=== PATIENT | male | born 1995 | race African-American/Black ===

== ENCOUNTER 2017-05-05 22:55 | Observation (INO) | payer OTHER ==
[~2017-05-05] VITALS: Ht 177.8 cm; Wt 72.5 kg
[~2017-05-05 22:55] MED LIST: GABA100C4 PO; MOBI7.5T PO; TOPI25 PO
[2017-05-05 22:57] VITALS: BP 149/83; PULSE 86; RESP 16; TEMP 97.8; O2SAT 100
[2017-05-05] MEDS ORDERED: TRAM50TA PO (23:14)
[2017-05-05] MEDS ORDERED: CYCL10TA PO (23:14)
--- NOTE | 2017-05-05 23:24 | PD ---
HPI Chief Complaint: Headache Time Seen by Provider: 23:14 Travel History International Travel<30 days: No Contact w/Intl Traveler<30days: No Traveled to known affect area: No History of Present Illness HPI 22-year-old male with history of pseudotumor cerebri with History of lumboperitoneal shunt that was removed in September of last year bt Dr. Hadley who placed a ASSOCIATE SALES REPRESENTATIVE shunt at that time, here for evaluation of headache. Patient reports worsening headache over the last 3 days which she describes as pressure that is retro-orbital. He has had associated photophobia and nausea. Pain is currently severe, was gradual in onset, described as pressure. He complains of some blurry vision. No fevers or chills. He has not taken anything for the headache. PFSH Past Medical History Asthma: Yes Autoimmune Disease: No Anxiety: No Depression: No Cardiovascular Problems: No Diminished Hearing: Yes Gastrointestinal Disorders: Yes Genitourinary: No Headaches: Yes Musculoskeletal: No Neurologic: Yes (HYDROCEPHALUS) Psychiatric: No Reproductive: No Respiratory: No Immunizations Current: Yes Migraines: Yes Seizures: Yes Past Surgical History Ear Surgery: Yes (EAR TUBES ) Joint Replacement: No Neurologic Surgery: Yes (lumbar shunt, with valve attacted 04/06) Oral Surgery: Yes (ADNOIDS REMOVED) Pacemaker: No Tonsillectomy: Yes Other Surgery: Yes (vp biology shunt) Social History Alcohol Use: No Tobacco Use: Yes (E CIGARETTES) Substance Use: No Allergies-Medications (Allergen,Severity, Reaction): Coded Allergies: No Known Allergies (Verified Adverse Reaction, Unknown, 05/05/17) Reported Meds & Prescriptions Reported Meds & Active Scripts Active Reported Flexeril (Cyclobenzaprine HCl) 10 Mg Tab 10 Mg PO TID Tramadol (Tramadol HCl) 50 Mg Tab 50 Mg PO Q4H PRN Review of Systems Except as stated in HPI: all other systems reviewed are Neg Physical Exam Narrative GENERAL: Well-developed, well-nourished, awake, no apparent distress. SKIN: Focused skin assessment warm/dry. HEAD: Atraumatic. Normocephalic. Right parietal scalp ASSOCIATE SALES REPRESENTATIVE shunt with depressible port. EYES: Pupils equal, round, 4 mm, reactive to light. No proptosis. No scleral icterus. No injection or drainage. ENT: No nasal bleeding or discharge. Mucous membranes pink and moist. NECK: Trachea midline. No JVD. No nuchal rigidity. CARDIOVASCULAR: Regular rate and rhythm. RESPIRATORY: No accessory muscle use. Clear to auscultation. Breath sounds equal bilaterally. MUSCULOSKELETAL: No obvious deformities. No clubbing. No cyanosis. No edema. NEUROLOGICAL: Awake and alert. No obvious cranial nerve deficits. Motor grossly within normal limits. Normal speech. No focal deficits. PSYCHIATRIC: Appropriate mood and affect; insight and judgment normal. Data Data Last Documented VS Vital Signs Date Time Temp Pulse Resp B/P (MAP) Pulse Ox O2 Delivery O2 Flow Rate FiO2 05/05/17 23:18 14 Room Air 05/05/17 22:57 97.8 86 149/83 (105) [address] Brain W/O Iv Contrast(Rout) (05/05/17 ) Shunt Series (05/05/17 ) Complete Blood Count With Diff (05/05/17 23:18) Comprehensive Metabolic Panel (05/05/17 23:18) Prothrombin Time / Inr (Pt) (05/05/17 23:18) Act Partial Throm Time (Ptt) (05/05/17 23:18) Iv Access Insert/Monitor (05/05/17 23:18) Ecg Monitoring (05/05/17 23:18) Oximetry (05/05/17 23:18) Morphine Inj (Morphine Inj) (05/05/17 23:30) Sodium Chloride 0.9% Flush (Ns Flush) (05/05/17 23:30) Metoclopramide Inj (Reglan Inj) (05/05/17 23:30) Morphine Inj (Morphine Inj) (05/06/17 00:45) Shuntogram (05/06/17 ) Admit Order (Ed Use Only) (05/06/17 01:24) Labs Laboratory Tests Test 05/05/17 23:30 White Blood Count 9.1 TH/MM3 Red Blood Count 4.84 MIL/MM3 Hemoglobin 15.0 GM/DL Hematocrit 43.8 % Mean Corpuscular Volume 90.7 FL Mean Corpuscular Hemoglobin 30.9 PG Mean Corpuscular Hemoglobin Concent 34.1 % Red Cell Distribution Width 12.8 % Platelet Count 213 TH/MM3 Mean Platelet Volume 9.4 FL Neutrophils (%) (Auto) 78.6 % Lymphocytes (%) (Auto) 14.8 % Monocytes (%) (Auto) 5.5 % Eosinophils (%) (Auto) 0.8 % Basophils (%) (Auto) 0.3 % Neutrophils # (Auto) 7.1 TH/MM3 Lymphocytes # (Auto) 1.3 TH/MM3 Monocytes # (Auto) 0.5 TH/MM3 Eosinophils # (Auto) 0.1 TH/MM3 Basophils # (Auto) 0.0 TH/MM3 CBC Comment DIFF FINAL Differential Comment Prothrombin Time 11.5 SEC Prothromb Time International Ratio 1.0 RATIO Activated Partial Thromboplast Time 27.1 SEC Blood Urea Nitrogen 11 MG/DL Creatinine 1.25 MG/DL Random Glucose 100 MG/DL Total Protein 7.7 GM/DL Albumin 4.1 GM/DL Calcium Level 8.6 MG/DL Alkaline Phosphatase 60 U/L Aspartate Amino Transf (AST/SGOT) 21 U/L Alanine Aminotransferase (ALT/SGPT) 24 U/L Total Bilirubin 0.4 MG/DL Sodium Level 137 MEQ/L Potassium Level 3.4 MEQ/L Chloride Level 102 MEQ/L Carbon Dioxide Level 24.8 MEQ/L Anion Gap 10 MEQ/L Estimat Glomerular Filtration Rate 88 ML/MIN [facility] Medical Decision Making Medical Screen Exam Complete: Yes Emergency Medical Condition: Yes Differential Diagnosis ASSOCIATE SALES REPRESENTATIVE shunt malfunction, tension headache, cluster headache, migraine headache, SAH /meningitis/encephalitis unlikely Narrative Course Vital signs show heart rate 86, blood pressure 149/83, pulse ox 100% on room air , oral temp of 97.8F. CBC is unremarkable. CMP is essentially unremarkable. Shunt series: Intact shunt. CT head: CONCLUSION: 1. No evidence of acute intracranial pathology. No masses are identified. No evidence of hydrocephalus The patient was initially given a dose of 4 mg of IV morphine and 10 mg of IV Reglan. He states his headache is slightly improved and is a 7 out of 10. He was written for another 4 mg of IV morphine. Upon reassessment he states his headache is slightly more improved and is now a 6 out of 10. He still feels pressure throughout his head. There is no nuchal rigidity and he is afebrile. I do not suspect an infectious etiology for the patient's symptoms. There are no neurologic deficits. He ambulated to the restroom without difficulty and without assistance. 1:15 AM: Case discussed with neurosurgeon Dr. Hadley who recommends that the patient be admitted to the medical service. He would like me to order a shuntogram to be performed in the morning. Case discussed with [facility] hospitalist Dr. Freeman. Patient will be admitted to their service under Dr. Sotelo. Diagnosis Primary Impression: Headache Qualified Codes: R51 - Headache Additional Impression: S/P ventriculoperitoneal shunt Admitting Information Admitting Physician Requests: Reymundo Ott MD May 05, 2017 23:24
[2017-05-05] MEDS ORDERED: SODIUM CHLORIDE 0.9% FLUSH 10 ML FLUSH IV FLUSH PRN (23:30)
[2017-05-05] MEDS ORDERED: METOCLOPRAMIDE HCL 10 MG/2 ML VIAL IV PUSH ONE (23:30)
[2017-05-05] MEDS ORDERED: MORPHINE SULFATE 4 MG/ML INJ IV PUSH ONE (23:30)
[2017-05-05 23:42] LABS: AUTOMATED NEUTROPHIL # 7.1 TH/MM3 (1.8-7.7); BASOPHIL % 0.3 % (0.0-2.0); EOSINOPHIL # 0.1 TH/MM3 (0-0.4); EOSINOPHIL % 0.8 % (0.0-4.0); HEMATOCRIT 43.8 % (39.0-51.0); HEMO FLAGS DIFF FINAL; LYMPH % 14.8 % (9.0-44.0); LYMPHOCYTE # 1.3 TH/MM3 (1.0-4.8); MEAN CELL VOLUME 90.7 FL (80.0-100.0); MEAN CORPUSCULAR HEMOGLOBIN 30.9 PG (27.0-34.0); MEAN CORPUSCULAR HGB CONC 34.1 % (32.0-36.0); MONO % 5.5 % (0.0-8.0); NEUT % 78.6 % (16.0-70.0); PLATELET COUNT 213 TH/MM3 (150-450); RED BLOOD COUNT 4.84 MIL/MM3 (4.50-5.90); RED CELL DISTRIBUTION WIDTH 12.8 % (11.6-17.2); WHITE BLOOD COUNT 9.1 TH/MM3 (4.0-11.0)
[2017-05-06] VITALS: BP 123/72; PULSE 78; RESP 16; O2SAT 96
[2017-05-06 00:03] LABS: APTT (PATIENT) 27.1 SEC (24.3-30.1); PROTHROMBIN TIME - PATIENT 11.5 SEC (9.8-11.6)
[2017-05-06 00:14] LABS: ALT (GPT) 24 U/L (12-78)
[2017-05-06 00:16] LABS: ALKALINE PHOSPHATASE 60 U/L (45-117); TOTAL BILIRUBIN ADULT 0.4 MG/DL (0.2-1.0)
[2017-05-06 00:17] LABS: ANION GAP 10 MEQ/L (5-15); AST (GOT) 21 U/L (15-37); BICARBONATE 24.8 MEQ/L (21.0-32.0); BLOOD UREA NITROGEN 11 MG/DL (7-18); CHLORIDE 102 MEQ/L (98-107); GLOMERULAR FILTRATION RATE 88 ML/MIN (>89); POTASSIUM 3.4 MEQ/L (3.5-5.1); SODIUM (NA) 137 MEQ/L (136-145)
--- NOTE | 2017-05-06 00:34 | RADRPT ---
EXAM DATE/TIME: 05/06/2017 00:03 [facility] COMPARISON: No previous studies available for comparison. INDICATIONS : Headaches x 1 week MEDICAL HISTORY : Seizures, hydrocephalus SURGICAL HISTORY : Shint placement ENCOUNTER: Initial ACUITY: 1 week PAIN SCORE: 7/10 LOCATION: Bilateral FINDINGS: Radiograph of the skull, neck, chest and abdomen performed to evaluate shunt patency. The shunt cath eter is seen entering the right frontal region with its tip in the region of the body of the right la teral ventricle. The catheter is continuous in its course terminating in the right upper quadrant No catheter disrupti on is identified. The visualized heart, lungs and abdominal structures are intact. CONCLUSION: Intact shunt. David Sutton MD on May 06, 2017 at 0:31 Board Certified Radiologist. This report was verified electronically.
[2017-05-06] MEDS ORDERED: MORPHINE SULFATE 4 MG/ML INJ IV PUSH ONE (00:45)
--- NOTE | 2017-05-06 01:07 | RADRPT ---
EXAM DATE/TIME: 05/06/2017 00:15 [facility] COMPARISON: CT BRAIN W/O CONTRAST, November 09, 2015, 14:28. INDICATIONS : Headache; patient with SOLUTION DESIGN ENGINEER shunt. RADIATION DOSE: 56.35 CTDIvol (mGy) MEDICAL HISTORY : Seizures. Hydrocephalus SURGICAL HISTORY : SOLUTION DESIGN ENGINEER shunt placement ENCOUNTER: Initial ACUITY: 1 day PAIN SCALE: 6/10 LOCATION: cranial TECHNIQUE: Multiple contiguous axial images were obtained of the head. Using automated exposure control and adj ustment of the mA and/or kV according to patient size, radiation dose was kept as low as reasonably a chievable to obtain optimal diagnostic quality images. DICOM format image data is available electro nically for review and comparison. FINDINGS: Noncontrast axial head CT demonstrates the ventricles to be normal in size and configuration with a n ormal sulcal pattern. No acute intracranial hemorrhage, acute cortical infarction, mass or midline sh ift is seen. Posterior fossa structures are unremarkable. Shunt is present in the right frontal regio n with its tip in the frontal horn of the left lateral ventricle. Bone windows are unremarkable. CONCLUSION: 1. No evidence of acute intracranial pathology. No masses are identified. No evidence of hydrocephalu s David Sutton MD on May 06, 2017 at 1:03 Board Certified Radiologist. This report was verified electronically.
[2017-05-06] MEDS ORDERED: GADODIAMIDE PF 287 MG/ML 5 ML VIAL (for RAD MRI) IV PUSH ONE (01:27)
[2017-05-06] MEDS ORDERED: IOHEXOL 300 MG/ML 100 ML BTL (for Rad CT) OTHER ONE (01:27)
[2017-05-06 02:55] VITALS: BP 115/65; PULSE 66; RESP 18; TEMP 97.7; O2SAT 100
[2017-05-06] MEDS: MORPHINE SULFATE 4 MG/ML INJ IV PUSH PRN ×5 (03:05→23:47)
--- NOTE | 2017-05-06 07:55 | HHI.HP ---
HPI Service [facility] Hospitalists Primary Care Physician Aysha Juárez D.O. Admission Diagnosis headache with NETWORK CABLER shunt Chief Complaint: Headache Travel History International Travel<30 Days: No Contact w/Intl Traveler <30 Da: No Traveled to Known Affected Are: No History of Present Illness Mr. Hoover is a 22 y/o male with chronic headaches, Pseudotumor cerebri s/p lumbar shunt which was removed and NETWORK CABLER shunt placed in 2015, low back pain and epilepsy. Pt had a lumbar shunt placed around 2007 for primary intracranial hypertension, and his symptoms improved. Since then, he has had issues with his shunt requiring approximately 14 surgeries which had mainly been performed at [facility]. Pt has been having issues with reoccurring severe headaches. He was admitted in 09/2015 and underwent NETWORK CABLER shunt revision with removal of nonfunctioning lumbar peritoneal shunt on 10/26/[address] Hadley and during surgery it was noted that the spinal catheter could not be located for removal, as it had migrated into the spinal canal. Pt states that about one and a half weeks ago he started having a global headache with increased pressure behind both eyes. He has had associated nausea, dizziness and blurred vision related to the headaches. The pain progressively worsened and this prompted him to come to the ED for further evaluation. Head CT with no evidence of acute intracranial pathology, no masses are identified, and no evidence of hydrocephalus. Shunt study noted intact shunt. Pt is going for a shuntogram this morning. Pt reports that he has continued to have issues with low back pain and LE weakness. he has been following with Dr. Vale and Dr. Hadley as an outpt. Pt takes Flexeril and Ultram as an outpt to try to control those symptoms.He has not had any issues with bowel or bladder function. The weakness in his legs is worse when his low back pain flares up. He has more pain in the lower back with bending or twisting motions and occasionally his back "gives out" on him and he can't stand up straight for around 2 days. He has workup as an outpt with EMG/ nerve conduction studies which have been reported as normal studies. Review of Systems Constitutional: COMPLAINS OF: Dizziness, DENIES: Fever, Chills Eyes: COMPLAINS OF: Blurred vision Ears, nose, mouth, throat: DENIES: Hearing loss, Vertigo, Ear Pain, Running Nose Respiratory: DENIES: Cough, Shortness of breath Cardiovascular: DENIES: Chest pain, Lower Extremity Edema Gastrointestinal: COMPLAINS OF: Nausea, Vomiting, DENIES: Abdominal pain, Diarrhea Genitourinary: DENIES: Urinary incontinence, Urgency, Dysuria Musculoskeletal: COMPLAINS OF: Back pain Integumentary: DENIES: Rash Neurologic: COMPLAINS OF: Headache, Localized weakness, DENIES: Speech Problems , Poor Balance Psychiatric: DENIES: Confusion Past Family Social History Past Medical History Pseudotumor cerebri s/p lumbar shunt with revision to NETWORK CABLER shunt secondary to hydrocephalus Migraine HAs Epilepsy, last seizure was 2011 Hypoxic brain injury at Past Surgical History NETWORK CABLER shunt revision with removal of nonfunctioning lumbar peritoneal shunt on 10/[address] 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 HEENT: Atraumatic. Normocephalic. No temporal or scalp tenderness. No scleral icterus. Airway patent. NECK: Trachea midline, supple, nontender. No nuchal rigidity CARDIO: Regular. RESP: CTA bilaterally. No wheezes, rales, or rhonchi. ABD: +BS, soft, non-tender, nondistended. EXT: Extremities without clubbing, cyanosis, or edema. NEURO: Awake and alert. Hyperreflexive in bilateral LE, L>R, Motor and sensory grossly within normal limits. Normal speech. Laboratory Laboratory Tests Test 05/05/17 23:30 White Blood Count 9.1 Red Blood Count 4.84 Hemoglobin 15.0 Hematocrit 43.8 Mean Corpuscular Volume 90.7 Mean Corpuscular Hemoglobin 30.9 Mean Corpuscular Hemoglobin Concent 34.1 Red Cell Distribution Width 12.8 Platelet Count 213 Mean Platelet Volume 9.4 Neutrophils (%) (Auto) 78.6 Lymphocytes (%) (Auto) 14.8 Monocytes (%) (Auto) 5.5 Eosinophils (%) (Auto) 0.8 Basophils (%) (Auto) 0.3 Neutrophils # (Auto) 7.1 Lymphocytes # (Auto) 1.3 Monocytes # (Auto) 0.5 Eosinophils # (Auto) 0.1 Basophils # (Auto) 0.0 CBC Comment DIFF FINAL Differential Comment Prothrombin Time 11.5 Prothromb Time International Ratio 1.0 Activated Partial Thromboplast Time 27.1 Blood Urea Nitrogen 11 Creatinine 1.25 Random Glucose 100 Total Protein 7.7 Albumin 4.1 Calcium Level 8.6 Alkaline Phosphatase 60 Aspartate Amino Transf (AST/SGOT) 21 Alanine Aminotransferase (ALT/SGPT) 24 Total Bilirubin 0.4 Sodium Level 137 Potassium Level 3.4 Chloride Level 102 Carbon Dioxide Level 24.8 Anion Gap 10 Estimat Glomerular Filtration Rate 88 Result Diagram: 05/05/170 05/05/17 2330 Imaging Last Impressions Shunt Study (Imaging) 05/05/17 0000 Signed Impressions: Service Date/Time: Saturday, May 06, 2017 00:03 - CONCLUSION: Intact shunt. David Sutton MD Head CT 05/05/17 0000 Signed Impressions: Service Date/Time: Saturday, May 06, 2017 00:15 - CONCLUSION: 1. No evidence of acute intracranial pathology. No masses are identified. No evidence of hydrocephalus David Sutton MD Septic Shock Reassessment Heart: Regular rate and rhythm Lungs: Clear Skin: Warm Caprini VTE Risk Assessment Caprini VTE Risk Assessment: No/Low Risk (score <= 1) Caprini Risk Assessment Model Point Value = 1 Point Value = 2 Point Value = 3 Point Value = 5 Age 41-60 Minor surgery BMI > 25 kg/m2 Swollen legs Varicose veins or History of unexplained or recurrent spontaneous Oral contraceptives or hormone replacement Sepsis (< 1 month) Serious lung disease, including pneumonia (< 1 month) Abnormal pulmonary function Acute myocardial infarction Congestive heart failure (< 1 month) History of inflammatory bowel disease Medical patient at bed rest Age 61-74 Arthroscopic surgery Major open surgery (> 45 min) Laparoscopic surgery (> 45 min) Malignancy Confined to bed (> 72 hours) Immobilizing plaster cast Central venous access Age >= 75 History of VTE Family history of VTE Factor V Leiden Prothrombin [id number] Lupus anticoagulant Anticardiolipin antibodies Elevated serum homocysteine Heparin-induced thrombocytopenia Other congenital or acquired thrombophilia Stroke (< 1 month) Elective arthroplasty Hip, pelvis, or leg fracture Acute spinal cord injury (< 1 month) Prophylaxis Regimen Total Risk Factor Score Risk Level Prophylaxis Regimen 0-1 Low Early ambulation 2 Moderate Order ONE of the following: *Sequential Compression Device (SCD) *Heparin 5000 units SQ BID 3-4 Higher Order ONE of the following medications: *Heparin 5000 units SQ TID *Enoxaparin/Lovenox 40 mg SQ daily (WT < 150 kg, CrCl > 30 mL/min) *Enoxaparin/Lovenox 30 mg SQ daily (WT < 150 kg, CrCl > 10-29 mL/min) *Enoxaparin/Lovenox 30 mg SQ BID (WT < 150 kg, CrCl > 30 mL/min) AND/OR *Sequential Compression Device (SCD) 5 or more Highest Order ONE of the following medications: *Heparin 5000 units SQ TID (Preferred with Epidurals) *Enoxaparin/Lovenox 40 mg SQ daily (WT < 150 kg, CrCl > 30 mL/min) *Enoxaparin/Lovenox 30 mg SQ daily (WT < 150 kg, CrCl > 10-29 mL/min) *Enoxaparin/Lovenox 30 mg SQ BID (WT < 150 kg, CrCl > 30 mL/min) AND *Sequential Compression Device (SCD) Assessment and Plan Problem List: (1) Headache ICD Codes: R51 - Headache Status: Chronic Plan: Pt is a 22 y/o male with chronic headaches, Pseudotumor cerebri s/p lumbar shunt which was removed and NETWORK CABLER shunt placed in 2015, low back pain and epilepsy. Pt had a lumbar shunt placed around 2007 for primary intracranial hypertension , and his symptoms improved. Since then, he has had issues with his shunt requiring approximately 14 surgeries which had mainly been performed at [facility]. Pt has been having issues with reoccurring severe headaches. He was admitted in 09/2015 and underwent NETWORK CABLER shunt revision with removal of nonfunctioning lumbar peritoneal shunt on 10/26/[address] Hadley and during surgery it was noted that the spinal catheter could not be located for removal, as it had migrated into the spinal canal. 1. Headache/blurred vision/nausea - Pt admitted with worsening headache x 1.5 weeks, global headache with increased pressure behind both eyes. He has had associated nausea, dizziness and blurred vision related to the headaches. - Head CT (05/05) with no evidence of acute intracranial pathology, no masses are identified, and no evidence of hydrocephalus. - Shunt study noted intact shunt. - Pt is going for a shuntogram this morning. - Consult Dr. Hadley - Pain control PRN - Antiemetics PRN - Supportive care - DVT prophylaxis with SCDs 2. Low back pain - Pt has had continued issues with low back pain and LE weakness. he weakness in his legs is worse when his low back pain flares up. He has more pain in the lower back with bending or twisting motions and occasionally his back "gives out" on him and he can't stand up straight for around 2 days. - He has been following with Dr. Vale and Dr. Hadley as an outpt. - Pt takes Flexeril and Ultram as an outpt to try to control those symptoms. - He has not had any issues with bowel or bladder function. - The has workup as an outpt with EMG/nerve conduction studies which have been reported as normal studies. - Check MRI lumbar spine. 3 Pseudotumor cerebri - See above 4. Epilepsy - Pt follows with Dr. Vale as an outpt - He is not currently on any antiepileptics (2) Low back pain ICD Codes: M54.5 - Low back pain Status: Chronic (3) Pseudotumor cerebri ICD Codes: G93.2 - Benign intracranial hypertension Status: Chronic (4) Epilepsy ICD Codes: G40.909 - Epilepsy, unspecified, not intractable, without status epilepticus Status: Chronic (5) S/P ventriculoperitoneal shunt ICD Codes: Z98.2 - Presence of cerebrospinal fluid drainage device Status: Acute Assessment and Plan Patient examined. Assessment and plan formulated with Meg Montana PA-C. I agree with the above. Problem Qualifiers (1) Low back pain: Qualified Codes: M54.5 - Low back pain Meg Montana May 06, 2017 07:55 Vance Sotelo DO May 13, 2017 20:46
[2017-05-06] MEDS ORDERED: METOCLOPRAMIDE HCL 10 MG/2 ML VIAL IM PRN (08:45)
[2017-05-06] MEDS ORDERED: ACETAMINOPHEN 325 MG TAB PO PRN (08:45)
[2017-05-06] MEDS ORDERED: ACETAMINOPHEN/HYDROcodone 325 MG/5 MG TAB PO PRN (08:45)
[2017-05-06 08:56] VITALS: BP 111/55; PULSE 70; RESP 18; TEMP 95.1; O2SAT 97
[2017-05-06] MEDS: ONDANSETRON HCL 4 MG/2 ML VIAL IV PRN ×2 (09:16→23:45)
--- NOTE | 2017-05-06 10:24 | PD.RAD ---
Post Procedure Progress Note Pre Procedure Diagnosis: (1) Pseudotumor cerebri (2) S/P ventriculoperitoneal shunt Post Procedure Diagnosis: (1) Pseudotumor cerebri (2) S/P ventriculoperitoneal shunt (3) Headache Procedure Date: May 06, 2017 Supervising Radiologist: Patel Boss Proceduralist/Assist: Makenzie Smith, RT(R), Deepika Covington, RT(R) Plan of Activity Patient to Unit: Other (ED) Patient Condition: Good See PACS Report for procedural detail/treatment Imaging Evaluation Shuntogram Findings: Shunt patent and intact. Patel Boss MD May 06, 2017 10:24
[2017-05-06] MEDS ORDERED: POTASSIUM CHLORIDE 20 MEQ CONTROLLED RELEASE TAB PO ONE (10:30)
--- NOTE | 2017-05-06 11:52 | PD.CONS ---
[facility] Service Neurosurgery Consult Requested By Salma MEHTA Reason for Consult Suspected shunt malfunction Primary Care Physician Aysha Juárez D.O. History of Present Illness Mr. Mcneil is a 22 y/o male with hisory of speudotumor cerebri and chronic headaches. he was diagnosed with Pseudotumor cerebri s/p lumbar shunt which was removed and TRANSPORTATION ATTENDANT shunt placed in 2016, low back pain and epilepsy.Pt had a lumbar shunt placed around 2007 for primary intracranial hypertension, and his symptoms improved. Since then, he has had shunt malfunction, requiring approximately 14 surgeries, mainly been performed at [facility], in [place]. He has been having recurring severe headaches. He was admitted in 09/2015 and underwent TRANSPORTATION ATTENDANT shunt revision with removal of nonfunctioning lumbar peritoneal shunt on 10/26/15 At that time, the spinal catheter could not be located for removal, as it had migrated into the spinal canal. Pt states that about one and a half weeks ago he started having a global headache with increased pressure behind both eyes. He has had associated nausea, dizziness and blurred vision. The pain progressively worsened and this prompted him to come to the ED for further evaluation. Head CT with no evidence of acute intracranial pathology. Shunt series noted intact shunt. He reports that he has continued to have issues with low back pain and LE weakness. he has been following with Dr. Vale. He takes Flexeril and Ultram to control those symptoms.He has not had any issues with bowel or bladder function. The weakness in his legs is worse when his low back pain flares up. Back pain in the lower back aggravated by bending or twisting. He has workup as an outpt with EMG/nerve conduction studies which have been reported as normal studies. Neurosurgical consultation was requested Review of Systems Constitutional: COMPLAINS OF: Dizziness, DENIES: Fever, Chills Eyes: COMPLAINS OF: Blurred vision Ears, nose, mouth, throat: DENIES: Hearing loss, Vertigo, Ear Pain, Running Nose Respiratory: DENIES: Cough, Shortness of breath Cardiovascular: DENIES: Chest pain, Lower Extremity Edema Gastrointestinal: COMPLAINS OF: Nausea, Vomiting, DENIES: Abdominal pain, Diarrhea Genitourinary: DENIES: Urinary incontinence, Urgency, Dysuria Musculoskeletal: COMPLAINS OF: Back pain Integumentary: DENIES: Rash Neurologic: COMPLAINS OF: Headache,back pain , DENIES: Speech Problems, Poor Balance Psychiatric: DENIES: Confusion Past Family Social History Allergies: Coded Allergies: No Known Allergies (Verified Adverse Reaction, Unknown, 05/05/17) Past Medical History Pseudotumor cerebri s/p lumbar shunt with revision to TRANSPORTATION ATTENDANT shunt secondary to hydrocephalus Migraine HAs Epilepsy, last seizure was 2011 Hypoxic brain injury at Past Surgical History TRANSPORTATION ATTENDANT shunt revision with removal of nonfunctioning lumbar peritoneal shunt on 10/[address] 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 Speech is fluent. Higher cognitive functions are normal. Cranial nerve examination demonstrates the pupils to be equal, round, and reactive to light. Extra-ocular movements are intact. Facial motor and sensory function are normal and symmetrical. Gross hearing is intact, bilaterally. The uvula is midline and elevates symmetrically with the soft palate. Sternocleidomastoid and trapezius muscles have normal and symmetrical strength. Other cranial nerves are intact. Neck is soft and supple. Cervical spine has a full range of motion in anterior flexion, extension, lateral bending, and rotation without pain. There is no tenderness to palpation to the spinous processes or paraspinal muscles. Muscle testing reveals normal bulk and tone overall without rigidity, spasticity , fasciculations, or atrophy. Muscle strength is 5/5 in all muscle groups of both upper extremities including deltoid, biceps, triceps, brachioradialis, wrist extension and gravity prospecting observer. In the lower extremities, strength is 5/5 in both iliopsoas, quadriceps, hamstrings, plantar flexion, dorsiflexion, and extensor hallicus longus. Sensory examination is intact to light touch and sharp/dull discrimination in both the upper and lower extremities, symmetrically. Deep tendon reflexes are 2+ and symmetrical in the biceps, triceps, and brachioradialis, bilaterally, in the upper extremities. In the lower extremities , the patellar and Achilles are 3+, bilaterally. There is a bilateral plantar flexion response. Hoffmanns sign is negative. There is no clonus or other abnormal reflexes noted. Cerebellar examination is intact to [id number] test, rapid rhythmic alternating motion. There is no dysmetria, dysdiadochokinesia, truncal ataxia, or tremor. Laboratory Laboratory Tests Test 05/05/17 23:30 White Blood Count 9.1 Red Blood Count 4.84 Hemoglobin 15.0 Hematocrit 43.8 Mean Corpuscular Volume 90.7 Mean Corpuscular Hemoglobin 30.9 Mean Corpuscular Hemoglobin Concent 34.1 Red Cell Distribution Width 12.8 Platelet Count 213 Mean Platelet Volume 9.4 Neutrophils (%) (Auto) 78.6 Lymphocytes (%) (Auto) 14.8 Monocytes (%) (Auto) 5.5 Eosinophils (%) (Auto) 0.8 Basophils (%) (Auto) 0.3 Neutrophils # (Auto) 7.1 Lymphocytes # (Auto) 1.3 Monocytes # (Auto) 0.5 Eosinophils # (Auto) 0.1 Basophils # (Auto) 0.0 CBC Comment DIFF FINAL Differential Comment Prothrombin Time 11.5 Prothromb Time International Ratio 1.0 Activated Partial Thromboplast Time 27.1 Blood Urea Nitrogen 11 Creatinine 1.25 Random Glucose 100 Total Protein 7.7 Albumin 4.1 Calcium Level 8.6 Alkaline Phosphatase 60 Aspartate Amino Transf (AST/SGOT) 21 Alanine Aminotransferase (ALT/SGPT) 24 Total Bilirubin 0.4 Sodium Level 137 Potassium Level 3.4 Chloride Level 102 Carbon Dioxide Level 24.8 Anion Gap 10 Estimat Glomerular Filtration Rate 88 Result Diagram: 05/05/170 05/05/17 2330 Imaging Imaging Last Impressions Shunt Study (Imaging) 05/05/17 0000 Signed Impressions: Service Date/Time: Saturday, May 06, 2017 00:03 - CONCLUSION: Intact shunt. David Sutton MD Head CT 05/05/17 0000 Signed Impressions: Service Date/Time: Saturday, May 06, 2017 00:15 - CONCLUSION: 1. No evidence of acute intracranial pathology. No masses are identified. No evidence of hydrocephalus David Sutton MD Assessment and Plan Assessment and Plan Caprini VTE Risk Assessment Caprini VTE Risk Assessment Caprini VTE Risk Assessment: No/Low Risk (score <= 1) Caprini Risk Assessment Model Point Value = 1 Point Value = 2 Point Value = 3 Point Value = 5 Age 41-60 Minor surgery BMI > 25 kg/m2 Swollen legs Varicose veins or History of unexplained or recurrent spontaneous Oral contraceptives or hormone replacement Sepsis (< 1 month) Serious lung disease, including pneumonia (< 1 month) Abnormal pulmonary function Acute myocardial infarction Congestive heart failure (< 1 month) History of inflammatory bowel disease Medical patient at bed rest Age 61-74 Arthroscopic surgery Major open surgery (> 45 min) Laparoscopic surgery (> 45 min) Malignancy Confined to bed (> 72 hours) Immobilizing plaster cast Central venous access Age >= 75 History of VTE Family history of VTE Factor V Leiden Prothrombin [id number] Lupus anticoagulant Anticardiolipin antibodies Elevated serum homocysteine Heparin-induced thrombocytopenia Other congenital or acquired thrombophilia Stroke (< 1 month) Elective arthroplasty Hip, pelvis, or leg fracture Acute spinal cord injury (< 1 month) Prophylaxis Regimen Total Risk Factor Score Risk Level Prophylaxis Regimen 0-1 Low Early ambulation 2 Moderate Order ONE of the following: *Sequential Compression Device (SCD) *Heparin 5000 units SQ BID 3-4 Higher Order ONE of the following medications: *Heparin 5000 units SQ TID *Enoxaparin/Lovenox 40 mg SQ daily (WT < 150 kg, CrCl > 30 mL/min) *Enoxaparin/Lovenox 30 mg SQ daily (WT < 150 kg, CrCl > 10-29 mL/min) *Enoxaparin/Lovenox 30 mg SQ BID (WT < 150 kg, CrCl > 30 mL/min) AND/OR *Sequential Compression Device (SCD) 5 or more Highest Order ONE of the following medications: *Heparin 5000 units SQ TID (Preferred with Epidurals) *Enoxaparin/Lovenox 40 mg SQ daily (WT < 150 kg, CrCl > 30 mL/min) *Enoxaparin/Lovenox 30 mg SQ daily (WT < 150 kg, CrCl > 10-29 mL/min) *Enoxaparin/Lovenox 30 mg SQ BID (WT < 150 kg, CrCl > 30 mL/min) AND *Sequential Compression Device (SCD) Attending Statement (1) Headache ICD Codes: R51 - Headache Status: Chronic 22 y/o male with chronic headaches, Pseudotumor cerebri s/p lumbar shunt. Approximately 14 revision surgeries. Recommend shuntogram to rule out shunt occlusion. (2) Low back pain ICD Codes: M54.5 - Low back pain Continue Flexeril and Ultram MRI lumbar spine. (3) Epilepsy ICD Codes: G40.909 - Epilepsy, unspecified, not intractable, without status epilepticus Status: Chronic follow up with Dr. Vale as an outpt He is not currently on any antiepileptics Renal. monitor closely urine output, BUN and creatinine Diabetes mellitus. Monitor serial Acu checks and SSI as needed in detail ID monitor for signs of infection Protonix for stress ulcer prophylaxis Henry garland and SCD's for DVT prophylaxis. Tre Hadley MD May 06, 2017 11:52
--- NOTE | 2017-05-06 13:07 | RADRPT ---
EXAM DATE/TIME: 05/06/2017 12:09 [facility] COMPARISON: SHUNT SERIES, May 06, 2017, 0:03. INDICATIONS : Pain. Pt had lumbar shunt removed in September. C/o back pain. CONTRAST: 14 cc Omniscan (gadodiamide) IV MEDICAL HISTORY : Hydrocephalis. SURGICAL HISTORY : Tonsillectomy. [employer] SALES shunt xs 14. ENCOUNTER: Subsequent ACUITY: 4-6 months PAIN SCORE: 4/10 LOCATION: back TECHNIQUE: Multiplanar multisequence MRI of the lumbar spine was performed with and without contrast. FINDINGS: The most caudal appearing lumbar vertebra is numbered as L5. VERTEBRAE: Homogeneous signal. Normal alignment. There is disc dehydration with disc space narrowing at L4-5. N o bone marrow edema seen in the vertebral bodies. There does appear to be a spinal catheter in place. The spinal catheter enters the canal at about the level of L4 and extends up to the level of L1-L2 CONUS: Normal level and configuration. POST CONTRAST: No abnormal areas of contrast enhancement are seen. T12-L1: The thecal sac has a normal diameter. No evidence of disc bulge or protrusion. The neural foramina are patent bilaterally. L1-L2: The thecal sac has a normal diameter. No evidence of disc bulge or protrusion. The neural foramina are patent bilaterally. L2-L3: The thecal sac has a normal diameter. No evidence of disc bulge or protrusion. The neural foramina are patent bilaterally. L3-L4: Mild broad-based bulging. The neural foramina are patent bilaterally. L4-L5: There is central and left paracentral disc protrusion with narrowing of the left neural foramina. The right neural foramina appears patent. L5-S1: The thecal sac has a normal diameter. No evidence of disc bulge or protrusion. The neural foramina are patent bilaterally. CONCLUSION: 1. There is central and left paracentral disc protrusion at L4-5 with narrowing of the left neural fo ramina. 2. There is disc degeneration with disc space narrowing at L4-5. 3. There is a spinal catheter in place entering the canal at L4 and extending up to the level of L1-L 2. The indication states the lumbar shunt was removed in September. Please correlate with patient's prior medical and surgical history since there is still a lumbar spinal catheter in place. Luc Ryan MD on May 06, 2017 at 12:58 Board Certified Radiologist. This report was verified electronically.
--- NOTE | 2017-05-06 13:48 | RADRPT ---
EXAM DATE/TIME: 05/06/2017 10:57 [facility] COMPARISON: SHUNTOGRAM, October 31, 2015, 14:23. INDICATIONS : Patient with a history of pseudotumor cerebri needs shuntogram. 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 Fluoroscopically guided shuntogram. The risks, benefits and alternatives to the procedure were explained and verbal and written consent w as obtained. The site was prepped in sterile fashion. Full sterile technique was used, including ca p, mask, sterile gloves and gown and a large sterile sheet. Hand hygiene and 2% chlorhexidine and/or betadine/alcohol prep was utilized per protocol for cutaneous antisepsis. The skin and subcutaneous tissues were infiltrated with local anesthetic solution. With fluoroscopic guidance the previously placed shunt was injected with a 23 gauge butterfly needle and positive contrast was injected. Immediate retrograde flow into the nondilated ventricular system. Shunt tubing is intact with free fl ow into the peritoneal cavity CONCLUSION: Negative exam. Ventriculoperitoneal shunt remains patent. Patel Bsos MD on May 06, 2017 at 13:43 Board Certified Radiologist. This report was verified electronically.
[2017-05-06 14:41] VITALS: BP 110/59; PULSE 67; RESP 18; TEMP 96.4; O2SAT 96
--- NOTE | 2017-05-06 16:05 | PD.RAD ---
Post Procedure Progress Note Pre Procedure Diagnosis: (1) Pseudotumor cerebri (2) Headache Post Procedure Diagnosis: (1) Pseudotumor cerebri (2) Headache Procedure Date: May 06, 2017 Supervising Radiologist: Patel Boss Proceduralist/Assist: Maurice Alfaro, RT(R), Alcides Wen, RT(R) Anesthesia: Local Plan of Activity Patient to Unit: Other (ED) Patient Condition: Good See PACS Report for procedural detail/treatment Spinal Procedure Lumbar Puncture L3-L4 Fluid Removal (CCs): 24 Fluid Description: Clear Puncture Time: 15:51 Findings: OP: 35 cmH2O CP: 12 cmH2O Patel Boss MD May 06, 2017 16:05
--- NOTE | 2017-05-06 16:43 | RADRPT ---
EXAM DATE/TIME: 05/06/2017 16:31 [facility] COMPARISON: LUMBAR PUNCTURE W/OPENING PRESSURES, October 29, 2015, 11:58. INDICATIONS : Patient presents with pseudotumor cerebri and chronic headaches in need of lumbar puncture with cultu res. 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 FLUID: 24 cc of clear CSF was collected and sent to the laboratory for analysis. PROCEDURE : 1. Fluoroscopic guided lumbar puncture. 2. Recording of opening pressure. The risks, benefits and alternatives to the procedure were explained and verbal and written consent w as obtained. The site was prepped in sterile fashion. Full sterile technique was used, including ca p, mask, sterile gloves and gown and a large sterile sheet. Hand hygiene and 2% chlorhexidine and/or betadine/alcohol prep was utilized per protocol for cutaneous antisepsis. The skin and subcutaneous tissues were infiltrated with local anesthetic solution. Airport Ramp Agent image shows a catheter overlying the spinal canal. Patient reports an abandoned lumbar drain. With fluoroscopic guidance the lumbar thecal sac was punctured at the above level described above and the opening pressure was recorded. The above described fluid was removed without difficulty. The patient tolerated the procedure well and there were no complications. CONCLUSION: 1. Uncomplicated fluoroscopically guided lumbar puncture with pressures as above. 2. Opening pressure of 35 cm of water with a closing pressure of 12 cm of water. Patel Boss MD on May 06, 2017 at 16:33 Board Certified Radiologist. This report was verified electronically.
[2017-05-06 17:36] VITALS: BP 106/55; PULSE 61; RESP 24; TEMP 97.5; O2SAT 98
[2017-05-06 18:18] LABS: GROSS BLOOD TUBE #1 0 (0); GROSS BLOOD TUBE #2 0 (0); SUPERNATE COLOR TUBE #1 CLEAR (CLEAR); SUPERNATE COLOR TUBE #2 CLEAR (CLEAR); SUPERNATE COLOR TUBE #3 CLEAR (CLEAR); VOLUME TUBE # 2 5.5 ML; VOLUME TUBE # 4 8.5 ML
[2017-05-06 18:19] LABS: CSF LYMPHOCYTES 85 %; CSF MONOCYTES 11 %; CSF NEUTROPHILS 0 %; GROSS BLOOD TUBE #4 0 (0); SUPERNATE COLOR TUBE #4 CLEAR (CLEAR); WBC TUBE #4 2 /MM3 (0-10)
[2017-05-06 21:45] VITALS: BP 109/60; PULSE 71; RESP 18; TEMP 98.2; O2SAT 98
[2017-05-07] MEDS: MORPHINE SULFATE 4 MG/ML INJ IV PUSH PRN ×2 (02:51→09:43)
[2017-05-07 04:11] VITALS: BP 103/55; PULSE 69; RESP 18; TEMP 98; O2SAT 98
[2017-05-07 07:40] VITALS: BP 108/57; PULSE 78; RESP 21; TEMP 97.9; O2SAT 99
[2017-05-07 11:16] VITALS: BP 108/58; PULSE 75; RESP 19; TEMP 98.4; O2SAT 96
--- NOTE | 2017-05-07 13:33 | HHI.NSPN ---
(Sabi Garcia) Note Status Status: Progress Note (Sabi Garcia) Interval History Interval History Mr. Hoover is a 22 y/o male with history of pseudotumor cerebri and chronic headaches. he was diagnosed with Pseudotumor cerebri s/p lumbar shunt which was removed and OPERATIONS AND MAINTENANCE TECHNICIAN shunt placed in 2015, low back pain and epilepsy.Pt had a lumbar shunt placed around 2007 for primary intracranial hypertension, and his symptoms improved. Since then, he has had shunt malfunction, requiring approximately 14 surgeries, mainly been performed at [facility], in [place]. He has been having recurring severe headaches. He was admitted in 09/2015 and underwent OPERATIONS AND MAINTENANCE TECHNICIAN shunt revision with removal of nonfunctioning lumbar peritoneal shunt on 10/26/15 At that time, the spinal catheter could not be located for removal, as it had migrated into the spinal canal. Pt states that about one and a half weeks ago he started having a global headache with increased pressure behind both eyes. He has had associated nausea, dizziness and blurred vision. The pain progressively worsened and this prompted him to come to the ED for further evaluation. Head CT with no evidence of acute intracranial pathology. Shunt series noted intact shunt. He reports that he has continued to have issues with low back pain and LE weakness. he has been following with Dr. Vale. He takes Flexeril and Ultram to control those symptoms.He has not had any issues with bowel or bladder function. The weakness in his legs is worse when his low back pain flares up. Back pain in the lower back aggravated by bending or twisting. He has workup as an outpt with EMG/nerve conduction studies which have been reported as normal studies. Neurosurgical consultation was requested 05/07: opening pressures 35. MRI L spine shows disc herniation at L4-5. pt reports persistent headaches. (Sabi Garcia) Labs, Micro, & Vital Signs Results Date Time Temp Pulse Resp B/P (MAP) Pulse Ox O2 Delivery O2 Flow Rate FiO2 05/07/17 11:16 98.4 75 19 108/58 (75) 96 05/07/17 07:40 97.9 78 21 108/57 (74) 99 05/07/17 04:11 98.0 69 18 103/55 (71) 98 05/06/17 21:45 98.2 71 18 109/60 (76) 98 05/06/17 17:36 97.5 61 24 106/55 (72) 98 05/06/17 14:41 96.4 67 18 110/59 (76) 96 Constitutional Vital Signs Date Time Temp Pulse Resp B/P (MAP) Pulse Ox O2 Delivery O2 Flow Rate FiO2 05/07/17 11:16 98.4 75 19 108/58 (75) 96 05/07/17 07:40 97.9 78 21 108/57 (74) 99 05/07/17 04:11 98.0 69 18 103/55 (71) 98 05/06/17 21:45 98.2 71 18 109/60 (76) 98 05/06/17 17:36 97.5 61 24 106/55 (72) 98 05/06/17 14:41 96.4 67 18 110/59 (76) 96 (Sabi Garcia) Review of Systems Musculoskeletal: COMPLAINS OF: Back pain Neurologic: COMPLAINS OF: Headache (Sabi Garcia) Physical Exam Mr Hoover is alert, awake and oriented to time, place and person. Speech is fluent. Conversant Cranial nerve examination: pupils equal, round, and reactive to light. Extra- ocular movements are intact. Facial motor are normal and symmetrical. Neck is soft and supple. Motor: moving all four extremities symmetrically Plantars downgoing bilaterally (Sabi Garcia) Mr Hooveris alert, awake and oriented to time, place and person. Speech is fluent. Cranial nerve examination: pupils to be equal, round and reactive to light. Extra-ocular movements are intact. Facial motor and sensory function are normal and symmetrical. Gross hearing appears intact. Sternocleidomastoid and trapezius muscles are symmetrical. Other cranial nerves are intact. Neck is soft and supple with a good range of motion without pain. Muscle strength is normal in all muscle groups of both upper and lower extremities. Sensory examination is intact to light touch and pin prick in both the upper and lower extremities. Deep tendon reflexes are symmetrical in both upper and lower extremities. There is a bilateral plantar flexion response. Cerebellar examination is unremarkable, without deficits. (Tre Hadley MD) Medications Current Medications Current Medications Medications (Trade) Dose Ordered Sig/Lucie Route PRN Reason Start Time Stop Time Status Last Admin Dose Admin Sodium Chloride (NS Flush) 2 ml UNSCH PRN IV FLUSH FLUSH AFTER USING IV ACCESS 05/05/17 23:30 05/06/17 03:05 Morphine Sulfate (Morphine Inj) 4 mg Q3H PRN IV PUSH PAIN SCALE 6 TO 10 05/06/17 01:30 05/07/17 09:43 Acetaminophen (Tylenol) 650 mg Q4H PRN PO fever 05/06/17 08:45 Ondansetron HCl (Zofran Inj) 4 mg Q6H PRN IV nausea 05/06/17 08:45 05/06/17 23:45 Acetaminophen/ Hydrocodone Bitart ([place] 5-325 Mg) 1 tab Q4H PRN PO pain 2-5 05/06/17 08:45 Metoclopramide HCl (Reglan Inj) 5 mg Q8H PRN IM nausea or vomiting 05/06/17 08:45 (Sabi Garcia) Current Medications Current Medications Morphine Sulfate (Morphine Inj) 4 mg ONCE ONCE IV PUSH Last administered on 23:31; Start 05/05/17 at 23:30; Stop 05/05/17 at 23:31; Status DC Sodium Chloride (NS Flush) 2 ml UNSCH PRN IV FLUSH FLUSH AFTER USING IV ACCESS Last administered on 05/06/17 03:05; Start 05/05/17 at 23:30; Stop 05/07/17 at 19:07; Status DC Metoclopramide HCl (Reglan Inj) 10 mg ONCE ONCE IV PUSH Last administered on 05/05/17 23:31; Start 05/05/17 at 23:30; Stop 05/05/17 at 23:31; Status DC Morphine Sulfate (Morphine Inj) 4 mg ONCE ONCE IV PUSH Last administered on 00:51; Start 05/06/17 at 00:45; Stop 05/06/17 at 00:46; Status DC Morphine Sulfate (Morphine Inj) 4 mg Q3H PRN IV PUSH PAIN SCALE 6 TO 10 Last administered on 05/07/17 09:43; Start 05/06/17 at 01:30; Stop 05/07/17 at 19:07 ; Status DC Acetaminophen (Tylenol) 650 mg Q4H PRN PO fever ; Start 05/06/17 at 08:45; Stop 05/07/17 at 19:07; Status DC Ondansetron HCl (Zofran Inj) 4 mg Q6H PRN IV nausea Last administered on 23:45; Start 05/06/17 at 08:45; Stop 05/07/17 at 19:07; Status DC Acetaminophen/ Hydrocodone Bitart ([place] 5-325 Mg) 1 tab Q4H PRN PO pain 2-5 Last administered on 05/07/17 13:28; Start 05/06/17 at 08:45; Stop 05/07/17 at 19:07; Status DC Metoclopramide HCl (Reglan Inj) 5 mg Q8H PRN IM nausea or vomiting ; Start 05/06/17 at 08:45; Stop 05/07/17 at 19:07; Status DC Iohexol (OMNIPAQUE 300 INJ (Rad CT)) 5 ml STK-MED ONCE OTHER ; Start 05/06/17 at 01:27; Stop 05/06/17 at 10:09; Status DC Potassium Chloride (KCl) 20 meq ONCE ONCE PO Last administered on 05/06/17 11 :01; Start 05/06/17 at 10:30; Stop 05/06/17 at 10:31; Status DC Gadodiamide (Omniscan Pf Inj) 14 ml STK-MED ONCE IV PUSH Last administered on 05/06/17 01:27; Start 05/06/17 at 01:27; Stop 05/06/17 at 13:09; Status DC (Tre Hadley MD) Medical Decision Making MDM Remarks 22 y/o male with acute on chronic headaches, idiopathic intracranial hypertension with ventriculoperitoneal shunt placement elevated opening pressure at 35 on LP MRI with L4-5 HNP (Sabi Garcia) Plan Plan Remarks MRI L spine reviewed by Dr. Hadley, recommending nonsurgical mgt at this time with PT and/or PM decrease his shunt setting from 180 to 160 mm H20 for elevated ICP cont supportive care clear to dc home from NRS standpoint dw family member in room, all questions answered (Sabi Garcia) Attending Statement Continue neuro checks. Pulmonary.. Continue aggressive pulmonary toilette, nasotracheal suction, and breathing treatments with nebulizers. Renal. monitor closely urine output, BUN and creatinine Endocrine. Monitor serial Acu checks and SSI as needed in detail ID monitor for signs of infection Protonix for stress ulcer prophylaxis The exam, history, and the medical decision-making described in the above note were completed with the assistance of the mid-level provider. I reviewed and agree with the findings presented. I attest that I had a [id number] encounter with the patient on the same day, and personally performed and documented my assessment and findings in the medical record. (Tre Hadley MD) Sabi Garcia May 07, 2017 13:33 Tre Hadley MD May 14, 2017 16:17
--- NOTE | 2017-05-07 14:31 | HHI.PR ---
Subjective Remarks Pt reports that his headache is improved since the LP but he complains of increased back pain today He has been ambulating to the bathroom without weakness or difficulty He states that he has not been eating much because he has no appetite NSx has adjusted her CORROSION TECHNICIAN shunt Objective Vitals Vital Signs Date Time Temp Pulse Resp B/P (MAP) Pulse Ox O2 Delivery O2 Flow Rate FiO2 05/07/17 11:16 98.4 75 19 108/58 (75) 96 05/07/17 07:40 97.9 78 21 108/57 (74) 99 05/07/17 04:11 98.0 69 18 103/55 (71) 98 05/06/17 21:45 98.2 71 18 109/60 (76) 98 05/06/17 17:36 97.5 61 24 106/55 (72) 98 05/06/17 14:41 96.4 67 18 110/59 (76) 96 Result Diagram: 05/05/170 05/05/17 2330 Other Results Laboratory Tests Test 05/05/17 23:30 05/06/17 15:51 White Blood Count 9.1 TH/MM3 Red Blood Count 4.84 MIL/MM3 Hemoglobin 15.0 GM/DL Hematocrit 43.8 % Mean Corpuscular Volume 90.7 FL Mean Corpuscular Hemoglobin 30.9 PG Mean Corpuscular Hemoglobin Concent 34.1 % Red Cell Distribution Width 12.8 % Platelet Count 213 TH/MM3 Mean Platelet Volume 9.4 FL Neutrophils (%) (Auto) 78.6 % Lymphocytes (%) (Auto) 14.8 % Monocytes (%) (Auto) 5.5 % Eosinophils (%) (Auto) 0.8 % Basophils (%) (Auto) 0.3 % Neutrophils # (Auto) 7.1 TH/MM3 Lymphocytes # (Auto) 1.3 TH/MM3 Monocytes # (Auto) 0.5 TH/MM3 Eosinophils # (Auto) 0.1 TH/MM3 Basophils # (Auto) 0.0 TH/MM3 CBC Comment DIFF FINAL Differential Comment Prothrombin Time 11.5 SEC Prothromb Time International Ratio 1.0 RATIO Activated Partial Thromboplast Time 27.1 SEC Blood Urea Nitrogen 11 MG/DL Creatinine 1.25 MG/DL Random Glucose 100 MG/DL Total Protein 7.7 GM/DL Albumin 4.1 GM/DL Calcium Level 8.6 MG/DL Alkaline Phosphatase 60 U/L Aspartate Amino Transf (AST/SGOT) 21 U/L Alanine Aminotransferase (ALT/SGPT) 24 U/L Total Bilirubin 0.4 MG/DL Sodium Level 137 MEQ/L Potassium Level 3.4 MEQ/L Chloride Level 102 MEQ/L Carbon Dioxide Level 24.8 MEQ/L Anion Gap 10 MEQ/L Estimat Glomerular Filtration Rate 88 ML/MIN CSF Volume (Tube 1) 5.0 ML CSF Supernatant Color (tube 1) CLEAR CSF Gross Blood (Tube 1) 0 CSF Volume (Tube 2) 5.5 ML CSF Supernatant Color (tube 2) CLEAR CSF Gross Blood (Tube 2) 0 CSF Volume (Tube 3) 5.0 ML CSF Supernatant Color (tube 3) CLEAR CSF Volume (Tube 4) 8.5 ML CSF Supernatant Color (tube 4) CLEAR CSF Gross Blood (Tube 4) 0 CSF WBC (Tube 4) 2 /MM3 CSF RBC (Tube 4) 2 /MM3 CSF Neutrophils 0 % CSF Lymphocytes 85 % CSF Monocytes 11 % CSF Histiocytes 4 % CSF Glucose 61 MG/DL CSF Total Protein 80.9 MG/DL Imaging Last Impressions Shunt Study 05/06/17 Signed Impressions: Service Date/Time: Saturday, May 06, 2017 10:57 - CONCLUSION: Negative exam. Ventriculoperitoneal shunt remains patent. Patel Boss MD Lumbar Spine MRI 05/06/17 Signed Impressions: Service Date/Time: Saturday, May 06, 2017 12:09 - CONCLUSION: 1. There is central and left paracentral disc protrusion at L4-5 with narrowing of the left neural foramina. 2. There is disc degeneration with disc space narrowing at L4-5. 3. There is a spinal catheter in place entering the canal at L4 and extending up to the level of L1-L2. The indication states the lumbar shunt was removed in September. Please correlate with patient's prior medical and surgical history since there is still a lumbar spinal catheter in place. Luc Ryan MD Lumbar Puncture Fluoroscopy 05/06/17 0000 Signed Impressions: Service Date/Time: Saturday, May 06, 2017 16:31 - CONCLUSION: 1. Uncomplicated fluoroscopically guided lumbar puncture with pressures as above. 2. Opening pressure of 35 cm of water with a closing pressure of 12 cm of water. Patel Boss MD Shunt Study (Imaging) 11/5/17 0000 Signed Impressions: Service Date/Time: Saturday, May 06, 2017 00:03 - CONCLUSION: Intact shunt. David Sutton MD Head CT 05/05/17 0000 Signed Impressions: Service Date/Time: Saturday, May 06, 2017 00:15 - CONCLUSION: 1. No evidence of acute intracranial pathology. No masses are identified. No evidence of hydrocephalus David Sutton MD Objective Remarks General: NAD, AAOx3 Chest: CTA Cardiac: Regular Abd: +BS, soft ND/NT Ext: No edema Neuro: Hyperreflexive in bilateral LE, L>R, Motor and sensory grossly within normal limits. A/P Problem List: (1) Headache ICD Codes: R51 - Headache Status: Chronic Plan: Pt is a 22 y/o male with chronic headaches, Pseudotumor cerebri s/p lumbar shunt which was removed and CORROSION TECHNICIAN shunt placed in 2015, low back pain and epilepsy. Pt had a lumbar shunt placed around 2007 for primary intracranial hypertension , and his symptoms improved. Since then, he has had issues with his shunt requiring approximately 14 surgeries which had mainly been performed at [facility]. Pt has been having issues with reoccurring severe headaches. He was admitted in 09/2015 and underwent CORROSION TECHNICIAN shunt revision with removal of nonfunctioning lumbar peritoneal shunt on 10/26/[address] Hadley and during surgery it was noted that the spinal catheter could not be located for removal, as it had migrated into the spinal canal. 1. Headache/blurred vision/nausea - Pt admitted with worsening headache x 1.5 weeks, global headache with increased pressure behind both eyes. He has had associated nausea, dizziness and blurred vision related to the headaches. - Head CT (05/05) with no evidence of acute intracranial pathology, no masses are identified, and no evidence of hydrocephalus. - Shunt study noted intact shunt. - Shuntogram (05/06) with patent CORROSION TECHNICIAN shunt - Appreciate consultation from Dr. Hadley - Pt had LP on 05/06 with noted opening pressure elevated at 35. - Shunt setting adjusted from 180 to 160 mm H20 for elevated ICP - Pain control PRN, pt given script for [employer] - Neurosurgery has cleared the pt for discharge. 2. Low back pain - Pt has had continued issues with low back pain and LE weakness. he weakness in his legs is worse when his low back pain flares up. He has more pain in the lower back with bending or twisting motions and occasionally his back "gives out" on him and he can't stand up straight for around 2 days. - He has been following with Dr. Vale and Dr. Hadley as an outpt. - Pt takes Flexeril and Ultram as an outpt to try to control those symptoms. - He has not had any issues with bowel or bladder function. - The has workup as an outpt with EMG/nerve conduction studies which have been reported as normal studies. - MRI lumbar spine (05/06) --> There is central and left paracentral disc protrusion at L4-5 with narrowing of the left neural foramina. There is disc degeneration with disc space narrowing at L4-5. 3. There is a spinal catheter in place entering the canal at L4 and extending up to the level of L1-L2. The indication states the lumbar shunt was removed in September. Please correlate with patient's prior medical and surgical history since there is still a lumbar spinal catheter in place. - Discussed MRI findings with Neurosurgery and they are not recommending any surgical intervention at this time. They are recommending that the pt followup with rug touch up painter as an outpt 3 Pseudotumor cerebri - See above 4. Epilepsy - Pt follows with Dr. Vale as an outpt - He is not currently on any antiepileptics (2) Low back pain ICD Codes: M54.5 - Low back pain Status: Chronic (3) Pseudotumor cerebri ICD Codes: G93.2 - Benign intracranial hypertension Status: Chronic (4) Epilepsy ICD Codes: G40.909 - Epilepsy, unspecified, not intractable, without status epilepticus Status: Chronic (5) S/P ventriculoperitoneal shunt ICD Codes: Z98.2 - Presence of cerebrospinal fluid drainage device Status: Acute Assessment and Plan Patient examined. Assessment and plan formulated with Meg Montana PA-C. I agree with the above. Problem Qualifiers (1) Low back pain: Qualified Codes: M54.5 - Low back pain Meg Montana May 07, 2017 14:31 Vance Sotelo DO May 13, 2017 20:44
[2017-05-07 16:22] VITALS: BP 110/55; PULSE 82; RESP 19; TEMP 98.5; O2SAT 99
[2017-05-07] MEDS ORDERED: HYDR-3516 PO (16:50)
--- NOTE | 2017-05-07 16:51 | HHI.DCPOC ---
Discharge Care Plan Diagnosis: (1) Headache (2) Low back pain (3) Pseudotumor cerebri (4) S/P ventriculoperitoneal shunt (5) Epilepsy Goals to Promote Your Health * To prevent worsening of your condition and complications * To maintain your health at the optimal level Directions to Meet Your Goals Take your medications as prescribed Follow your dietary instruction Follow activity as directed Keep your appointments as scheduled Take your immunizations and boosters as scheduled If your symptoms worsen call your PCP, if no PCP go to Urgent Care Center or Emergency Room Smoking is Dangerous to Your Health. Avoid second hand smoke Call the 24-hour hour crisis hotline for domestic abuse at Meg Montana May 07, 2017 16:51 Vance Sotelo DO May 13, 2017 20:46
== END 2017-05-07 18:57 | disposition home or self-care (01) ==
LOC: NEPD 22:55 → NEDA 05-06 01:26 → NEPHCDU 05-06 02:16
PROVIDERS: ADMIT Hospitalist; ATTEND Hospitalist
DX: R51 Headache (principal); G93.2 Benign intracranial hypertension; M51.36 Other intervertebral disc degeneration, lumbar region; G40.909 Epilepsy, unspecified, not intractable, without status epilepticus; J45.909 Unspecified asthma, uncomplicated; Z98.2 Presence of cerebrospinal fluid drainage device
CPT/HCPCS: 61070; 62270; 70250; 70450; 71010; 72040; 72158; 74000; 75809; 77003; 80053; 82945; 84157; 85025; 85610; 85730; 87070; 87205; 89051; 96374; 96375; 96376; 97162; 99285; A9579; G0378; G8987; G8988; J2270; J2405; J2765; Q9967